=== PATIENT | male | born 1955 | race Caucasian/White ===

== ENCOUNTER 2018-12-19 19:42 | Emergency (ER) | payer OTHER ==
[~2018-12-19] VITALS: Ht 177.8 cm; Wt 150.6 kg
[~2018-12-19 19:42] MED LIST: AVALIDE 150-12.1 TA1 PO; AVALIDE 150/12.1 TAB; DOLOGEN CAPLET1 TAB PO; GILTUSS LIQUID237 M1 PO; GILTUSS LIQUID237 ML; METFORMIN HCL500 MG; PROTONIX40 MG; SINGULAIR10 MG; VYTORIN 10/20 T1 TAB PO; XYZAL5 MG
== END 2018-12-19 23:35 | disposition home or self-care (01) ==
LOC: ER 19:42
DX: J32.8 Other chronic sinusitis (principal); K29.70 Gastritis, unspecified, without bleeding; J06.9 Acute upper respiratory infection, unspecified